=== PATIENT | female | born 1960 ===

== ENCOUNTER 2017-10-13 06:08 | Inpatient (IN) | payer BC ==
[2017-10-13 06:09] VITALS: BMI 25.8
--- NOTE | 2017-10-13 07:33 | ED PDOC ---
Upper Extremity Pain/Injury Chief Complaint (Provider): Right arm pain History Per: Patient History/Exam Limitations: clinical condition Onset/Duration Of Symptoms: Days Current Symptoms Are (Timing): Constant Pain Scale Rating Of: 9 Exacerbating Factor(s): Movement Additional History Per: Family Additional Complaint(s): 57 y/o F with PMHx of HTN, and G6PD deficiency presents to ED complaining of right upper extremity pain for 1 week. The pain started after she tried to prevent a fall with her right arm 1 week ago. She fell on her left knee, but she denies head trauma. Pain is constant, getting worse, 9/10, aggravates with movements, tramadol is nt helping to relief the pain. Denies numbness, tingling , weakness op RUE. <Claudia Luke - Last Filed: 10/13/17 09:11> <Nedra Jara - Last Filed: 10/13/17 10:00> Time Seen by Provider: 10/13/17 07:24 Chief Complaint (Nursing): Upper Extremity Problem/Injury Supervising Attending Note - Supervising Attending Note The Documented history was done by the: Physician Evidence Technician, Attending Physician The documented physical exam was done by the: Physician Evidence Technician, Attending Physician The documented procedures were done by the: Physician Evidence Technician, Attending Physician - Attestation: I have personally seen and examined this patient.: Yes I have fully participated in the care of the patient.: Yes I have reviewed all pertinent clinical information: Yes <Nedra Jara - Last Filed: 10/13/17 10:00> Past Medical History Vital Signs: Last Vital Signs Temp 97.6 F 10/13/17 06:27 Pulse 84 10/13/17 06:27 Resp 16 10/13/17 06:27 BP Pulse Ox 99 10/13/17 06:27 - Medical History PMH: Anemia (G6PD), HTN - Surgical History Other surgeries: partial hysterectomy, Right humerus fracture repair - Family History Family History: States: No Known Family Hx - Immunization History Hx Tetanus Toxoid Vaccination: No Hx Influenza Vaccination: No Hx Pneumococcal Vaccination: No <Claudia Luke - Last Filed: 10/13/17 09:11> Reviewed: Historical Data, Nursing Documentation, Vital Signs Vital Signs: Last Vital Signs Temp 98.4 F 10/13/17 09:40 Pulse 60 10/13/17 09:40 Resp 18 10/13/17 09:40 BP 157/93 H 10/13/17 09:40 Pulse Ox 99 10/13/17 09:11 <Nedra Jara - Last Filed: 10/13/17 10:00> - Allergies Allergies/Adverse Reactions: Allergies Allergy/AdvReac Type Severity Reaction Status Date / Time aspirin Allergy ANGIOEDEMA Verified 10/13/17 06:34 Sulfa (Sulfonamide Allergy FATIGUE Verified 07/15/17 12:32 Antibiotics) Review of Systems ROS Statement: Except As Marked, All Systems Reviewed And Found Negative (as per HPI) <Claudia Luke - Last Filed: 10/13/17 09:11> ROS Statement: Except As Marked, All Systems Reviewed And Found Negative <Nedra Jara - Last Filed: 10/13/17 10:00> Physical Exam - Reviewed Nursing Documentation Reviewed: Yes Vital Signs Reviewed: Yes - Physical Exam Appears: Positive for: Non-toxic, No Acute Distress Skin: Positive for: Normal Color, Warm, Dry Eye Exam: Positive for: Normal appearance, PERRL ENT: Positive for: Normal ENT Inspection. Negative for: Nasal Congestion, Pharyngeal Erythema, Tonsillar Exudate Neck: Positive for: Normal, Supple Cardiovascular/Chest: Positive for: Regular Rate, Rhythm. Negative for: Chest Non Tender, Edema, Gallop, Murmur Respiratory: Positive for: Normal Breath Sounds. Negative for: Decreased Breath Sounds, Accessory Muscle Use, Crackles, Rales, Rhonchi, Wheezing, Respiratory Distress Gastrointestinal/Abdominal: Positive for: Normal Exam, Bowel Sounds (normal and present), Soft. Negative for: Tenderness, Distended, Guarding, Rebound, Hernia Back: Positive for: Normal Inspection. Negative for: L CVA Tenderness, R CVA Tenderness Extremity: Positive for: Other (No gross deformity noted compared with left UE. Right upper extremity exam: tender to palpation of right shoulder, arm, and elbow. Decreased ROM due to pain. Noted deltoid muscle tenderness and contracture to palpation. UE strength preserved. Pulses present and normal) Neurologic/Psych: Positive for: Alert, Oriented <Claudia Luke - Last Filed: 10/13/17 09:11> - Reviewed Nursing Documentation Reviewed: Yes Vital Signs Reviewed: Yes <Nedra Jara - Last Filed: 10/13/17 10:00> - Laboratory Results Result Diagrams: 10/13/17 08:18 10/13/17 08:18 - ECG O2 Sat by Pulse Oximetry: 99 <Claudia Luke - Last Filed: 10/13/17 09:11> - Laboratory Results Result Diagrams: 10/13/17 08:18 10/13/17 08:18 <Nedra Jara - Last Filed: 10/13/17 10:00> Medical Decision Making Medical Decision Making: Right Upper extremity pain -s/p fall -H/O prior surgery of RUE fracture repair on July/[address] Chicas at [facility] -X ray of Right shoulder, arm, and elbow -Pain control -case discussed with Dr. Jara -re-evaluation Re-evaluation -X ray showed displaced fracture of Right Humerus/read by me. But pending official report -Dr. Chicas was consulted. Recommendations are appreciated -patient needs urgent surgery for fracture repair -plan discussed with patient and family, and agreed with admission and surgery by Ortho, Dr. Chicas -pre-operative labs, EKG, CXR ordered -patient will be admitted under primary doctor, Dr. Pollock -case discussed with Dr Jara <Claudia Luke - Last Filed: 10/13/17 09:11> Disposition - Patient ED Disposition Is Patient to be Admitted: Yes Discussed With : Nedra Jara - Disposition Disposition Time: 08:50 <Claudia Luke - Last Filed: 10/13/17 09:11> Discussed With : Manuel Pollock Counseled Patient/Family Regarding: Studies Performed, Diagnosis - Pt Status Changed To: Hospital Disposition Of: Inpatient - Admit Certification Admit to Inpatient:: After my assessment, the patient will require hospitalization for at least two midnights. This is because of the severity of symptoms shown, intensity of services needed, and/or the medical risk in this patient being treated as an outpatient. - POA Present On Arrival: Falls Or Trauma <Nedra Jara - Last Filed: 10/13/17 10:00> - Clinical Impression Clinical Impression: Right humeral fracture - Disposition Condition: FAIR
[2017-10-13 08:35] LABS: BASO % 0.6 % (0.0-2.0); EOS # 0.1 K/uL (0.0-0.7); HEMOGLOBIN 13.6 g/dL (12.0-16.0); LYMPH # 1.3 K/uL (1.0-4.3); MEAN CELL VOLUME 100.9 fl (81.0-99.0); MEAN CORPUSCULAR HEMOGLOBIN 35.7 pg (27.0-31.0); MEAN CORPUSCULAR HGB CONC 35.4 g/dL (33.0-37.0); MEAN PLATELET VOLUME 7.5 fl (7.2-11.7); MONO # 0.4 K/uL (0.0-0.8); NEUT # 3.4 K/uL (1.8-7.0); NEUT % 65.4 % (50.0-75.0); NRBC % 0.2 % (0.0-0.0); RBC 3.82 Mil/uL (3.80-5.20); RED CELL DISTRIBUTION WIDTH 13.1 % (11.5-14.5); WHITE BLOOD COUNT 5.2 K/uL (4.8-10.8)
[2017-10-13 08:39] LABS: INR 1.1 (0.9-1.2); PARTIAL THROMBOPLASTIN TIME 31.6 Seconds (25.6-37.1); PROTHROMBIN TIME 11.7 Seconds (9.8-13.1)
[2017-10-13 08:42] LABS: SQUAMOUS EPITHIAL 2 /hpf (0-5); URINE BACTERIA FEW (<OCC); URINE BILIRUBIN NEGATIVE (NEGATIVE); URINE BLOOD NEGATIVE (NEGATIVE); URINE CLARITY SLIGHTY-CLOUDY (Clear); URINE COLOR YELLOW (YELLOW); URINE GLUCOSE (UA) NEG (Normal); URINE LEUKOCYTE ESTERASE NEG Leu/uL (Negative); URINE PROTEIN NEGATIVE (NEGATIVE)
[2017-10-13 08:48] LABS: BLOOD UREA NITROGEN 13 mg/dl (7-17); CALCIUM 9.9 mg/dL (8.4-10.2); GFR AFRICAN-AMERICAN > 60; GFR NON-AFRICAN AMERICAN > 60
--- NOTE | 2017-10-13 09:08 | RAD ---
PROCEDURE: Radiographs of the Right Shoulder HISTORY: shoulder pain s/p fall COMPARISON: Right shoulder radiographs dated 07/15/2017 performed at [facility] FINDINGS: BONES: Comminuted fracture of the mid humeral diaphysis with approximately 7.7 cm overlap. Prior open reduction internal plate and screw fixation of the previously seen proximal humeral fracture. Old healed fracture of the distal clavicle. JOINTS: Stable inferior subluxation of the right humeral head. Acromioclavicular joint degenerative changes. SOFT TISSUES: Calcific tendinitis. OTHER FINDINGS: None. IMPRESSION: Comminuted fracture of the mid humeral diaphysis approximately 7.7 cm overlap. Additional findings as above.
--- NOTE | 2017-10-13 09:19 | RAD ---
HISTORY: medical COMPARISON: Chest radiograph dated 07/16/2017 performed at [facility] FINDINGS: LUNGS: No active pulmonary disease. PLEURA: No significant pleural effusion identified, no pneumothorax apparent. CARDIOVASCULAR: Atherosclerotic aortic calcifications. Cardiomediastinal silhouette within normal limits. OSSEOUS STRUCTURES: Unchanged. VISUALIZED UPPER ABDOMEN: Normal. OTHER FINDINGS: None. IMPRESSION: No active disease.
--- NOTE | 2017-10-13 09:23 | RAD ---
PROCEDURE: Radiographs of the right humerus. HISTORY: right arm pain s/p fall COMPARISON: CT right upper extremity dated 07/15/2017 performed at [facility]. FINDINGS: BONES: Comminuted fracture of the mid humeral diaphysis approximately 7.7 cm overlap. Prior open reduction internal plate and screw fixation of the previous seen proximal humeral fracture. SOFT TISSUES: Normal. OTHER FINDINGS: None. IMPRESSION: Comminuted fracture of the mid humeral diaphysis with approximately 7.7 cm overlap.
--- NOTE | 2017-10-13 09:28 | RAD ---
PROCEDURE: Radiographs of the right elbow. HISTORY: elbow pain s/p fall COMPARISON: No prior. FINDINGS: BONES: Questionable fracture of the coronoid process. JOINTS: Degenerative changes. SOFT TISSUES: Normal. JOINT EFFUSION: Suggestion of anterior fat pad elevation. OTHER FINDINGS: None. IMPRESSION: Questionable fracture of the coronoid process.
--- NOTE | 2017-10-13 10:18 | CP.PCM.HP ---
History of Present Illness - History of Present Illness History of Present Illness: CC: Right upper extremity pain HPI: 57 y/o woman w/ pmh of HTN and G6PD presents fro right upper extremity pain. Patient is s/p ORIF of Right humerus 3 months ago. Patient reports trying to prevent fall 1 week ago by bracing herself on something. However, she has had pain in the same location of her previous fracture since then. Patient reports pain medication was not alleviating. Patient denies other trauma, head injury, or LOC. Patient denies headaches, chest pain, SOB, abdominal pain, nausea, vomiting, diarrhea, dysuria, or fever. PMD: Dr. Thomas PMH: HTN, G6PD meds: see med list allergies: ASA, sulfa PSH: ORIF right humerus 07/2017 Fam: denies SOC: current smoker, 5-10 cigarettes/day for over 30 years, denies alcohol and drugs ROS: 12 points assessed and negative unless otherwise reported in HPI Present on Admission - Present on Admission Any Indicators Present on Admission: No History of DVT/PE: No History of Uncontrolled Diabetes: No Urinary Catheter: No Decubitus Ulcer Present: No Review of Systems - Review of Systems All systems: reviewed and no additional remarkable complaints except - Constitutional Constitutional: absent: Chills, Fever, Headache - EENT Eyes: absent: Change in Vision - Cardiovascular Cardiovascular: absent: Chest Pain - Respiratory Respiratory: absent: Dyspnea - Gastrointestinal Gastrointestinal: absent: Abdominal Pain, Diarrhea, Nausea, Vomiting - Genitourinary Genitourinary: absent: Dysuria - Musculoskeletal Musculoskeletal: As Per HPI - Integumentary Integumentary: absent: Rash Past Patient History - Infectious Disease Hx of Infectious Diseases: None - Past Medical History & Family History Past Medical History?: Yes - Past Social History Smoking Status: Current Some Days Smoker - CARDIAC Hx Cardiac Disorders: Yes - HEMATOLOGICAL/ONCOLOGICAL Hx Blood Disorders: Yes - MUSCULOSKELETAL/RHEUMATOLOGICAL Hx Falls: Yes - PSYCHIATRIC Hx Emotional Abuse: No Hx Physical Abuse: No - SURGICAL HISTORY Hx Surgeries: Yes Hx Hysterectomy: Yes (PARTIAL) Hx Orthopedic Surgery: Yes (Right shoulder) - ANESTHESIA Hx Anesthesia: Yes Hx Anesthesia Reactions: No Hx Malignant Hyperthermia: No Meds Allergies/Adverse Reactions: Allergies Allergy/AdvReac Type Severity Reaction Status Date / Time aspirin Allergy ANGIOEDEMA Verified 10/13/17 06:34 Sulfa (Sulfonamide Allergy FATIGUE Verified 07/15/17 12:32 Antibiotics) Physical Exam - Constitutional Appears: Non-toxic, No Acute Distress - Head Exam Head Exam: ATRAUMATIC, NORMAL INSPECTION, NORMOCEPHALIC - Eye Exam Eye Exam: Normal appearance - ENT Exam ENT Exam: Mucous Membranes Moist - Neck Exam Neck exam: Positive for: Full Rom. Negative for: Tenderness - Respiratory Exam Respiratory Exam: Clear to Auscultation Bilateral. absent: Accessory Muscle Use , Decreased Breath Sounds, Rales, Rhonchi, Wheezes, Respiratory Distress - Cardiovascular Exam Cardiovascular Exam: REGULAR RHYTHM, RRR. absent: Tachycardia - GI/Abdominal Exam GI & Abdominal Exam: Normal Bowel Sounds, Soft. absent: Distended, Tenderness - Extremities Exam Extremities exam: Negative for: calf tenderness - Expanded Upper Extremities Exam Right Upper Arm exam: tenderness (well healed scar from previous ORIF) Results - Vital Signs Recent Vital Signs: Last Vital Signs Temp 98.4 F 10/13/17 09:40 Pulse 60 10/13/17 09:40 Resp 18 10/13/17 09:40 BP 157/93 H 10/13/17 09:40 Pulse Ox 99 10/13/17 09:11 - Labs Result Diagrams: 10/13/17 08:18 10/13/17 08:18 Labs: Laboratory Results - last 24 hr 10/13/17 10/13/17 10/13/17 08:18 08:18 08:18 WBC 5.2 RBC 3.82 Hgb 13.6 Hct 38.5 MCV 100.9 H MCH 35.7 H MCHC 35.4 RDW 13.1 Plt Count 173 MPV 7.5 Neut % (Auto) 65.4 Lymph % (Auto) 25.0 Bureau % (Auto) 8.0 Eos % (Auto) 1.0 Baso % (Auto) 0.6 Neut # (Auto) 3.4 Lymph # (Auto) 1.3 Bureau # (Auto) 0.4 Eos # (Auto) 0.1 Baso # (Auto) 0.0 PT 11.7 INR 1.1 APTT 31.6 Sodium 142 Potassium 3.5 L Chloride 100 Carbon Dioxide 29 Anion Gap 17 BUN 13 Creatinine 0.5 L Est GFR ( Amer) > 60 Est GFR (Non-Af Amer) > 60 Random Glucose 105 Calcium 9.9 Urine Color Urine Clarity Urine pH Ur Specific [place] Urine Protein Urine Glucose (UA) Urine Ketones Urine Blood Urine Nitrate Urine Bilirubin Urine Urobilinogen Ur Leukocyte Esterase Urine RBC (Auto) Urine Microscopic WBC Ur Squamous Epith Cells Urine Bacteria Blood Type Antibody Screen BBK History Checked 10/13/17 10/13/17 08:18 08:18 WBC RBC Hgb Hct MCV MCH MCHC RDW Plt Count MPV Neut % (Auto) Lymph % (Auto) Bureau % (Auto) Eos % (Auto) Baso % (Auto) Neut # (Auto) Lymph # (Auto) Bureau # (Auto) Eos # (Auto) Baso # (Auto) PT INR APTT Sodium Potassium Chloride Carbon Dioxide Anion Gap BUN Creatinine Est GFR ( Amer) Est GFR (Non-Af Amer) Random Glucose Calcium Urine Color Yellow Urine Clarity Slighty-cloudy Urine pH 6.0 Ur Specific [place] 1.016 Urine Protein Negative Urine Glucose (UA) Neg Urine Ketones Negative Urine Blood Negative Urine Nitrate Positive H Urine Bilirubin Negative Urine Urobilinogen 4.0 H Ur Leukocyte Esterase Neg Urine RBC (Auto) 2 Urine Microscopic WBC 9 H Ur Squamous Epith Cells 2 Urine Bacteria Few H Blood Type O POSITIVE Antibody Screen Negative BBK History Checked Patient has bt Assessment & Plan (1) Right humeral fracture Status: Acute (2) G6PD deficiency Status: Chronic (3) HTN (hypertension) Status: Chronic - Assessment and Plan (Free Text) Plan: afebrile, non-tachycardic, BP mildly elevated medically optimized for surgery today for right humeral fracture orthopaedic consult ordered XR humerus: comminuted fracture of mid-humeral diaphysis 7.7 cm overlap for OR today monitor for acute changes
[2017-10-13] MEDS ORDERED: Lactated Ringer's 1,000 ML IV ONE ×3 (11:03→13:30)
[2017-10-13] MEDS ORDERED: Bupivacaine HCl 0.25% PF (30 ml) Inj ONE (11:04)
[2017-10-13] MEDS ORDERED: Bupivacaine HCl/Epi 0.5% 1:20000 30 ML SOL IJ ONE (11:04)
[2017-10-13] MEDS ORDERED: Propofol 10 mg/ml Inj (20 ML) ONE (11:07)
[2017-10-13] MEDS ORDERED: Midazolam 2 MG/2 ML VIAL ONE (11:07)
[2017-10-13] MEDS ORDERED: Succinylcholine 200 mg/10 ml Inj IV ONE (11:07)
[2017-10-13] MEDS ORDERED: Rocuronium 10 mg/ml (5 ml) ONE ×2 (11:29→11:51)
[2017-10-13] MEDS ORDERED: Dexamethasone 4 mg/1 ml ONE (11:45)
[2017-10-13] MEDS ORDERED: Potassium Chloride 20 mEq 100 ML IVPB ONE (12:32)
--- NOTE | 2017-10-13 14:35 | PCM.SURG1 ---
Surgeon's Initial Post Op Note - Surgeon's Notes Surgeon: Ivana Chicas MD Data Virtualization Consultant: Kirit Collins MD; Luc Tellez PA-C Type of Anesthesia: General Endo Pre-Operative Diagnosis: Right shoulder periprosthetic humeral shaft fx Operative Findings: see op report Post-Operative Diagnosis: same as pre-op dx Operation Performed: Right Removal of hardware and ORIF periprosthetic humeral shaft fx Specimen/Specimens Removed: right proximal humerus plate Estimated Blood Loss: EBL {In ML}: 600 Date of Surgery/Procedure: 10/13/17 Time of Surgery/Procedure: 12:00
[2017-10-13] MEDS ORDERED: HYDROmorphone 0.5 mg/0.5 ml ISec IVP PRN (14:52)
--- NOTE | 2017-10-13 14:57 | PCM.ANESB1 ---
Interscalene Block - Brachial Plexus Date of Procedure: 10/13/17 Anesthesiologist: Meño Pre-Procedure Diagnosis: Right humerus fracture Post-Procedure Diagnosis: Same Procedure Performed: Interscalene Block of Brachial Plexus Right - Procedure Interscalene Block of Brachial Plexus: This procedure was explained to the patient that it is for post-operative pain management. Consent was obtained after a thorough discussion with the patient regarding the benefits and possible complications of local anesthetic block of the Brachial Plexus at the Interscalene area. The patient was brought to the PACU and standard monitors were applied. Time out was held with the circulating nurse to confirm the correct surgery and appropriate block. After applying Oxygen by nasal cannula, the patient's head was gently rotated away from the __ right____operative shoulder and the anterior scalene groove was carefully palpated. The ultrasound transducer was then applied to the skin in the transverse plane and the brachial plexus was visualized lateral to the carotid artery and in between the anterior and middle scalene muscles. After identification,the anterior lateral portion of the neck was prepped with Chloraprep and Lidocaine 1% 1cc was injected subcutaneously for topical analgesia. At this point, a # 22 gauge Stimuplex 2 inches insulated needle was inserted into the interscalene groove and directed in a caudal and midline direction. The needle was inserted lateral to the ultrasound transducer in-plane towards the brachial plexus in a [id number] direction. Needle advancement was performed carefully under direct ultrasound visualization. Nerve stimulator was used and twitched of the affected extremity including the hand brachialis muscles, biceps and the deltoid was obtained at a current of __0.38___MA. After repeated negative aspiration,__2___cc of_0.5%____, bupivicaine with 1:200, 000 epinephrine were injected and this was followed with __23___cc of _0.5____% __bupivicaine with 1:200,000 epinephrine . Under ultrasound guidance the local anesthetics were observed surrounding the roots of the brachial plexus. The needle was removed intact and sterile dressing was applied. The patient had stable vital signs, was conscious and in no apparent distress. The patient tolerated the interscalene block of the bracheal plexus well and reported reduction in pain scale 5 minutes post injection.
[2017-10-13] MEDS ORDERED: Lactated Ringer's 1,000 ML IV SCH (15:00)
--- NOTE | 2017-10-13 15:10 | CARD ---
APPROVED REPORT EKG Measurement Heart [id number] <Conclusion> Normal sinus rhythm with sinus arrhythmia Minimal voltage criteria for LVH, may be normal variant Borderline ECG
--- NOTE | 2017-10-13 15:34 | RAD ---
PROCEDURE: Radiographs of the right humerus. HISTORY: s/p ORIF right proximal humeral FX with C-arm COMPARISON: Preoperative study October 13, 2017. FINDINGS: BONES: Anatomic alignment of major fracture fragments following open reduction internal fixation. SOFT TISSUES: Normal. OTHER FINDINGS: None. IMPRESSION: Satisfactory postoperative status
--- NOTE | 2017-10-13 15:41 | RAD ---
PROCEDURE: Fluoroscopy in excess of 1 hour. HISTORY: RIGHT HUMERUS COMPARISON: None TECHNIQUE: Standard protocol for this study/examination. FINDINGS: Total fluoroscopic time (continuous mode) utilized during the procedure (seconds) 64.4.. IMPRESSION: Submitted images from the current procedure: 10
[2017-10-13] MEDS ORDERED: ceFAZolin 1 GM in Sodium Chloride 0.9% 100 ML IVPB ONE (19:00)
--- NOTE | 2017-10-13 20:39 | CON ---
DATE: 10/13/2017 CHIEF COMPLAINT: Right humeral shaft fracture. HISTORY OF PRESENT ILLNESS: The patient is a 57-year-old female right-hand dominant who had undergone open reduction and internal fixation of right proximal humerus fracture. The patient reports she got her arm stuck at the side of the bed and felt a pop in a right humerus. The patient had persistent pain and presented to the emergency room where the x-rays were taken showing a periprosthetic humeral shaft fracture. The patient was seen in the emergency room. Denies any paresthesias or motor weakness. Denies pain in any of the extremity or joint. PHYSICAL EXAMINATION: EXTREMITIES: Examination of the patient's right arm, there is a significant deformity with tenting of the skin and ecchymosis and bruising. The patient's medium, ulnar, and radial nerve intact distally. Neurovascularly intact distally. Limited range of motion secondary to pain. IMAGING: X-rays of the patient's right humerus joint, periprosthetic humeral shaft fracture below the proximal humerus plate. ASSESSMENT: A 57-year-old female with right humeral shaft periprosthetic fracture and skin tenting. TREATMENT PLAN: I explained to the patient due to displaced nature of the fracture and skin tenting, I am recommending an open reduction and internal fixation debridement of all the soft tissue bone, removal of hardware, and all other indicated procedures. The patient agreed to the plan and we will proceed with surgery today. Ivana Chicas MD
--- NOTE | 2017-10-13 21:03 | OP ---
PROCEDURE DATE: 10/13/2017 PREOPERATIVE DIAGNOSIS: Right periprosthetic humeral shaft fracture. POSTOPERATIVE DIAGNOSIS: Right displaced humeral periprosthetic fracture. PROCEDURE: 1. Open reduction and internal fixation of right humerus periprosthetic fracture. 2. Removal of deep implant of proximal humeral plate. 3. Extensive debridement of soft tissues, muscle and bone. 4. Fluoroscopic use greater than 1 hour. ATTENDING PHYSICIAN: Ivana Chicas MD GIS SPECIALIST: Kirit Collins MD TYPE OF ANESTHESIA: General. ESTIMATED BLOOD LOSS: 300 mL. IMPLANTS: Synthes 10-hole long proximal humeral plate. COMPLICATIONS: None. HISTORY: The patient is a 57-year-old female who presented to the emergency room after a fall and displaced humeral shaft fracture and the patient was taken to the operating room from the emergency room. DESCRIPTION OF PROCEDURE: The patient was brought to the operating room, given general anesthesia, and was given appropriate prophylactic antibiotics. First, x-ray was used to confirm the right proximal humerus shaft fracture which is periprosthetic and displaced in nature. Skin was draped and prepped in standard sterile manner. First, a time-out was completed confirming the patient's right arm to the correct operative site. The previous deltopectoral incision was utilized extending laterally near the antecubital fossa. All the bleeding vessels were coagulated and the interval between deltoid and pectoralis major was identified proximally and distally. The biceps mobilized medially and the lateral cutaneous nerve and the musculocutaneous nerve were identified and also protected laterally. There was extensive callus formation and soft tissue and extensive muscle debridement, muscle soft tissue and bone and debridement was performed using rongeur, curettes, and irrigation. The provisional fracture reduction was achieved using reduction clamps and reduction was confirmed both AP and lateral radiographs for fixation 2.7 cortical screws in a lag fashion to compress the fracture site. Next, a Synthes 10-hole plate was used. Next, the proximal humerus plate was removed and replaced with a 10-hole long Synthes plate. First, the plate was secured distally with cortical screw and proximally to the cortical screw. Afterwards, locking screw was placed proximally and distally. The final fracture reduction was confirmed on AP radiographs and also appropriate plate positioning and the wound was copiously irrigated and all the soft tissue and debris was removed. The deep tissue was closed using 0 Vicryl and skin was closed in a standard manner. The sterile dressing was applied. The patient was extubated, transferred to the stretcher, and taken to the recovery room. There were no complication of surgery. Dr. Kirit Collins is a board certified orthopedic surgeon who was present for the entirety of the case as his participation was crucial in patient positioning, retraction of critical neurovascular structure, fracture reduction, and proper positioning of the implants and successful completion of the surgery. Ivana Chicas MD
[2017-10-13] MEDS: Oxycodone/Acetaminophen 5/325 mg Tab PO PRN (23:12)
[2017-10-14] MEDS ORDERED: ceFAZolin 1 GM in Sodium Chloride 0.9% 100 ML IVPB ONE (03:00)
[2017-10-14] MEDS: Oxycodone/Acetaminophen 5/325 mg Tab PO PRN (06:43)
[2017-10-14 06:55] LABS: BASO % 0.1 % (0.0-2.0); EOS % 0.2 % (0.0-4.0); HEMOGLOBIN 10.2 g/dL (12.0-16.0); LYMPH # 1.7 K/uL (1.0-4.3); LYMPH % 23.8 % (20.0-40.0); MEAN CELL VOLUME 101.9 fl (81.0-99.0); MEAN CORPUSCULAR HEMOGLOBIN 35.9 pg (27.0-31.0); MEAN CORPUSCULAR HGB CONC 35.2 g/dL (33.0-37.0); MEAN PLATELET VOLUME 7.9 fl (7.2-11.7); MONO # 0.7 K/uL (0.0-0.8); MONO % 9.4 % (0.0-10.0); NEUT # 4.7 K/uL (1.8-7.0); NEUT % 66.5 % (50.0-75.0); RBC 2.84 Mil/uL (3.80-5.20); RED CELL DISTRIBUTION WIDTH 12.8 % (11.5-14.5); WHITE BLOOD COUNT 7.1 K/uL (4.8-10.8)
[2017-10-14 07:31] LABS: BLOOD UREA NITROGEN 10 mg/dl (7-17); CALCIUM 8.8 mg/dL (8.4-10.2); GFR AFRICAN-AMERICAN > 60; GFR NON-AFRICAN AMERICAN > 60
[2017-10-14] MEDS ORDERED: Oxycodone/Acetaminophen 5/325 mg Tab PO PRN ×2 (09:16→09:17)
[2017-10-14] MEDS ORDERED: oxyCODONE 10 mg Immediate Release Tab PO PRN (09:53)
[2017-10-14] MEDS ORDERED: oxyCODONE 5 mg Immediate Release Tab PO PRN (09:58)
[2017-10-14 12:41] VITALS: BP 116/75; PULSE 81; RESP 18; TEMP 97.7; O2SAT 96
--- NOTE | 2017-10-14 13:57 | PQF GENQUE ---
Dr. Ivana Chicas, Excisional Debridement is this a separate procedure versus inherent to the ORIF? The operative note includes the following documentation:here was extensive callus formation and soft tissue and extensive muscle debridement, muscle soft tissue and bone and debridement was performed using rongeur, curettes, and irrigation. 10/13 Op note: PROCEDURE: 1. Open reduction and internal fixation of right humerus periprosthetic fracture. 2. Removal of deep implant of proximal humeral plate. 3. Extensive debridement of soft tissues, muscle and bone. This form is a permanent part of the medical record Clarification of your documentation is requested to better reflect the severity of illness and intensity of treatment of your patient. Indicators present [] Specify: [] [] Specify: [] [] Specify: [] [] Specify: [] Location in the medical record that reflects the above clinical findings: [] Treatment Provided: [] PHYSICIAN'S RESPONSE Based on your medical judgment of the clinical indicators outlined above please clarify the following: [] Practitioner response [] If unable to determine, please check the box, sign and date. Present On Admission (POA) Indicator: [] Present at the time of admission [] Not present at the time of admission [] Clinically Undetermined In responding to this query, please exercise your independent professional judgment. The fact that a question is asked does not imply that any particular answer is desired or expected. Thank you for your clarification on this documentation. If you have any questions please call. * Thank you, Tanya Keene RN ext. [phone] [facility]
--- NOTE | 2017-10-14 14:00 | CP.PCM.DIS ---
Provider - Provider Date of Admission: 10/13/17 07:46 Attending physician: Manuel Pollock MD Primary care physician: Anil Thomas MD Time Spent in preparation of Discharge (in minutes): 15 Diagnosis - Discharge Diagnosis (1) Right humeral fracture Status: Acute (2) G6PD deficiency Status: Chronic (3) HTN (hypertension) Status: Chronic Hospital Course - Lab Results Lab Results: Most Recent Lab Values WBC 7.1 K/uL (4.8-10.8) 10/14/17 05:45 RBC 2.84 Mil/uL (3.80-5.20) L 10/14/17 05:45 Hgb 10.2 g/dL (12.0-16.0) L D 10/14/17 05:45 Hct 29.0 % (34.0-47.0) L 10/14/17 05:45 MCV 101.9 fl (81.0-99.0) H 10/14/17 05:45 MCH 35.9 pg (27.0-31.0) H 10/14/17 05:45 MCHC 35.2 g/dL (33.0-37.0) 10/14/17 05:45 RDW 12.8 % (11.5-14.5) 10/14/17 05:45 Plt Count 140 K/uL (130-400) 10/14/17 05:45 MPV 7.9 fl (7.2-11.7) 10/14/17 05:45 Neut % (Auto) 66.5 % (50.0-75.0) 10/14/17 05:45 Lymph % (Auto) 23.8 % (20.0-40.0) 10/14/17 05:45 [place] % (Auto) 9.4 % (0.0-10.0) 10/14/17 05:45 Eos % (Auto) 0.2 % (0.0-4.0) 10/14/17 05:45 Baso % (Auto) 0.1 % (0.0-2.0) 10/14/17 05:45 Neut # (Auto) 4.7 K/uL (1.8-7.0) 10/14/17 05:45 Lymph # (Auto) 1.7 K/uL (1.0-4.3) 10/14/17 05:45 Hendry # (Auto) 0.7 K/uL (0.0-0.8) 10/14/17 05:45 Eos # (Auto) 0.0 K/uL (0.0-0.7) 10/14/17 05:45 Baso # (Auto) 0.0 K/uL (0.0-0.2) 10/14/17 05:45 PT 11.7 Seconds (9.8-13.1) 10/13/17 08:18 INR 1.1 (0.9-1.2) 10/13/17 08:18 APTT 31.6 Seconds (25.6-37.1) 10/13/17 08:18 Sodium 138 mmol/l (132-148) 10/14/17 05:45 Potassium 3.8 MMOL/L (3.6-5.0) 10/14/17 05:45 Chloride 104 mmol/L (98-107) 10/14/17 05:45 Carbon Dioxide 28 mmol/L (22-30) 10/14/17 05:45 Anion Gap 10 (10-20) 10/14/17 05:45 BUN 10 mg/dl (7-17) 10/14/17 05:45 Creatinine 0.5 mg/dl (0.7-1.2) L 10/14/17 05:45 Est GFR ( Amer) > 60 10/14/17 05:45 Est GFR (Non-Af Amer) > 60 10/14/17 05:45 Random Glucose 113 mg/dL (65-105) H 10/14/17 05:45 Calcium 8.8 mg/dL (8.4-10.2) 10/14/17 05:45 Urine Color Yellow (YELLOW) 10/13/17 08:18 Urine Clarity Slighty-cloudy (Clear) 10/13/17 08:18 Urine pH 6.0 (5.0-8.0) 10/13/17 08:18 Ur Specific [place] 1.016 (1.003-1.030) 10/13/17 08:18 Urine Protein Negative mg/dL (NEGATIVE) 10/13/17 08:18 Urine Glucose (UA) Neg mg/dL (Normal) 10/13/17 08:18 Urine Ketones Negative mg/dL (NEGATIVE) 10/13/17 08:18 Urine Blood Negative (NEGATIVE) 10/13/17 08:18 Urine Nitrate Positive (NEGATIVE) H 10/13/17 08:18 Urine Bilirubin Negative (NEGATIVE) 10/13/17 08:18 Urine Urobilinogen 4.0 mg/dL (0.2-1.0) H 10/13/17 08:18 Ur Leukocyte Esterase Neg Jaxon/uL (Negative) 10/13/17 08:18 Urine RBC (Auto) 2 /hpf (0-3) 10/13/17 08:18 Urine Microscopic WBC 9 /hpf (0-5) H 10/13/17 08:18 Ur Squamous Epith Cells 2 /hpf (0-5) 10/13/17 08:18 Urine Bacteria Few (<OCC) H 10/13/17 08:18 Blood Type O POSITIVE 10/13/17 08:18 Antibody Screen Negative 10/13/17 08:18 Crossmatch See Detail 10/13/17 08:18 BBK History Checked Patient has bt 10/13/17 08:18 - Hospital Course Hospital Course: 57 y/o woman w/ pmh of HTN and G6PD presents for right upper extremity pain. Patient is s/p ORIF of Right humerus 3 months ago. Patient had removal of hardware yesterday and ORIF of periprosthetic humeral shaft POD 1. The patient reports pain at surgical site partially relieved w/ medication. The patient reports having regular bowel movement and voiding freely. The patient denies headaches, chest pain, SOB, abdominal pain, nausea, vomiting, diarrhea, dysuria , or fever. The patient was seen by orthopaedics. The patient has been seen, examined, and deemed medically fit for discharge home. The patient was given script for oxycodone 5mg PO Q6h for pain prn. The patient is to follow up Dr. Chicas and PMD in 1 week Discharge Exam - Head Exam Head Exam: ATRAUMATIC, NORMAL INSPECTION, NORMOCEPHALIC - Eye Exam Eye Exam: Normal appearance - ENT Exam ENT Exam: Mucous Membranes Moist - Neck Exam Neck exam: Full Rom - Respiratory Exam Respiratory Exam: Clear to PA & Lateral. absent: Accessory Muscle Use, Decreased Breath Sounds, Rales, Rhonchi, Wheezes, Respiratory Distress - Cardiovascular Exam Cardiovascular Exam: REGULAR RHYTHM, RRR. absent: Tachycardia, Diastolic murmur , Systolic Murmur - GI/Abdominal Exam GI & Abdominal Exam: Normal Bowel Sounds, Soft. absent: Distended, Tenderness - Extremities Exam Extremities exam: tenderness (at surgical site, right arm in sling) - Neurological Exam Neurological exam: Alert, CN II-XII Intact, Normal Gait, Oriented x3 - Skin Skin Exam: Dry, Intact, Normal Color, Warm Discharge Plan - Discharge Medications Prescriptions: oxyCODONE [oxyCODONE Immediate Release Tab] 5 mg PO Q6 PRN #10 tab PRN Reason: Pain, Moderate (4-7) - Follow Up Plan Condition: FAIR Disposition: HOME/ ROUTINE Instructions: Open Reduction and Internal Fixation Surgery (DC), Upper Arm Fracture Additional Instructions: follow up with primary MD and Dr Chicas 1 week. Referrals: Ivana Chicas MD [Staff Provider] - Anil Thomas MD [Primary Care Provider] -
== END 2017-10-14 14:00 | disposition home or self-care (01) | DRG 493 ==
LOC: H.ER 06:08 → H.ERHOLD 07:46 → H.MEDSURG1 09:45
PROVIDERS: ADMIT Family Medicine; ATTEND Family Medicine
PROC: 0PSF04Z Reposition Right Humeral Shaft with Internal Fixation Device, Open Approach (ICD-10-PCS; principal; 2017-10-13 10:15)
PROC: 0XP60YZ Removal of Other Device from Right Upper Extremity, Open Approach (ICD-10-PCS; 2017-10-13 10:15)
DX: M97.31XA Periprosthetic fracture around internal prosthetic right shoulder joint, initial encounter (principal); S42.391A Other fracture of shaft of right humerus, initial encounter for closed fracture; I10 Essential (primary) hypertension; D55.0 Anemia due to glucose-6-phosphate dehydrogenase [G6PD] deficiency; F17.210 Nicotine dependence, cigarettes, uncomplicated; W19.XXXA Unspecified fall, initial encounter